=== PATIENT | female | born 1975 | race Two or more races ===

== ENCOUNTER 2024-04-26 08:27 | Emergency (ER) | payer MEDICAID ==
[~2024-04-26] VITALS: Ht 157.5 cm; Wt 71.2 kg
[2024-04-26 09:51] VITALS: BP 109/81; TEMP 99; O2SAT 99
== END 2024-04-26 09:54 | disposition home or self-care (01) ==
LOC: ER 08:39
DX: S63.8X2A Sprain of other part of left wrist and hand, initial encounter (principal); Z88.0 Allergy status to penicillin; W01.0XXA Fall on same level from slipping, tripping and stumbling without subsequent striking against object, initial encounter; Y93.89 Activity, other specified; Y92.89 Other specified places as the place of occurrence of the external cause; Y99.8 Other external cause status
CPT/HCPCS: 73090-TC; 73130-TC